=== PATIENT | female | born 1945 | race Caucasian/White ===

== ENCOUNTER 2017-01-19 13:54 | Observation (INO) | payer MEDICARE ==
[2017-01-19] MEDS ORDERED: Aspirin Low Dose CHEW TAB* 81 MG PO ONE (14:04)
[2017-01-19 14:31] LABS: Hematocrit 42 % (35-47); Hemoglobin 13.6 g/dl (12.0-16.0); Mean Corpuscular HGB Conc 33 g/dl (31-36); Mean Corpuscular Hemoglobin 30 pg (27-31); Mean Corpuscular Volume 90 fL (80-97); Mean Platelet Volume 7 um3 (7.4-10.4); Red Blood Count 4.62 10^6/ul (4.0-5.4); Red Cell Distribution Width 14 % (10.5-15)
--- NOTE | 2017-01-19 14:33 | RAD ---
INDICATION: Dizziness COMPARISON: None TECHNIQUE: An AP portable view obtained at 1405 hours is submitted. FINDINGS: Bones/Soft Tissues: There are no acute bony findings. Cardiomediastinal: The cardiomediastinal silhouette is normal. Lungs: There are no infiltrates. Pleura: There are no pleural effusions. Other: None IMPRESSION: NO ACTIVE DISEASE.
[2017-01-19 14:47] LABS: Albumin 3.8 g/dL (3.2-5.2); BUN/Creatinine Ratio 13.2 (8-20); Calcium 9.3 mg/dL (8.6-10.3); EGFR Non-African American 75.5 (>60); Globulin 3.2 g/dL (2-4); Potassium 3.5 mmol/L (3.5-5.0); Total Bilirubin 0.5 mg/dL (0.2-1.0)
[2017-01-19 14:49] LABS: Troponin I 0.01 ng/mL (<0.04)
[2017-01-19] MEDS ORDERED: Acetaminophen TAB* 325 MG PO PRN (15:28)
[2017-01-19] MEDS ORDERED: Ondansetron INJ* 2 MG/ML VIAL IV PRN (15:28)
[2017-01-19 15:43] LABS: Urine Bacteria Absent (Absent); Urine Bilirubin Negative (Negative); Urine Glucose Negative (Negative); Urine Nitrite Negative (Negative)
--- NOTE | 2017-01-19 15:51 | ED ---
Hiren Oliveira Benjamin, scribed for Hemalatha Zavala MD on 01/19/17 at 1503 . Dizziness - HPI Summary HPI Summary: 71F c/o sudden onset dizziness and nausea earlier today while driving earlier today. Morrice dizzy and lightheaded. Pt also reports some cough. Denies room spinning, CP, or SOB. FHx includes CAD. - History Of Current Complaint Chief Complaint: EDDizziness Stated Complaint: DIZZY Time Seen by Provider: 01/19/17 14:04 Hx Obtained From: Patient Onset/Duration: Resolved, Suddenly Timing: Intermittent Episode Lasting Severity Initially: Moderate Severity Currently: None Character: Lightheaded, Dizzy Aggravating Factor(s): Supine To Erect, Change In Head Position Alleviating Factor(s): Lying Down Associated Signs And Symptoms: Negative: Chest Pain, SOB, Visual Changes, Fever - Allergies/Home Medications Allergies/Adverse Reactions: Allergies Allergy/AdvReac Type Severity Reaction Status Date / Time No Known Allergies Allergy Verified 01/19/17 15:02 Home Medications: Home Medications Citalopram Hydrobromide [Celexa] 5 mg PO DAILY 01/19/17 [History Confirmed 01/19] PMH/Surg Hx/FS Hx/Imm Hx Endocrine/Hematology History: Denies: Hx Diabetes Infectious Disease History: No Infectious Disease History: Denies: Traveled Outside the [place] in Last 30 Days - Family History Known Family History: Positive: Cardiac Disease Negative: Hypertension - Social History Occupation: Employed Full-time Lives: Alone Review of Systems Constitutional: Negative Negative: Fever, Chills Eyes: Negative ENT: Negative Cardiovascular: Negative Negative: Chest Pain Positive: Cough. Negative: Shortness Of Breath Positive: Nausea. Negative: Abdominal Pain, Vomiting Genitourinary: Negative Musculoskeletal: Negative Skin: Negative Neurological: Other - dizziness and lighheadedness Psychological: Normal All Other Systems Reviewed And Are Negative: Yes Physical Exam Triage Information Reviewed: Yes Vital Signs On Initial Exam: Initial Vitals Temp Pulse Resp Pulse Ox 97.6 F 62 18 92 01/19/17 14:02 01/19/17 14:02 01/19/17 14:02 01/19/17 14:02 Vital Signs Reviewed: Yes Appearance: Positive: Well-Appearing, No Pain Distress, Well-Nourished Skin: Positive: Warm, Skin Color Reflects Adequate Perfusion, Dry Head/Face: Positive: Normal Head/Face Inspection Eyes: Positive: EOMI, ALIYAH ENT: Positive: Normal ENT inspection Neck: Positive: Supple, Nontender Respiratory/Lung Sounds: Positive: Clear to Auscultation, Breath Sounds Present Cardiovascular: Positive: RRR Abdomen Description: Positive: Nontender, Soft Bowel Sounds: Positive: Present Musculoskeletal: Positive: Strength/ROM Intact Neurological: Positive: Sensory/Motor Intact, Alert, Oriented to Person Place, Time, CN Intact II-III Psychiatric: Positive: Affect/Mood Appropriate - [place] Coma Scale Coma Scale Total: 15 Diagnostics - Vital Signs Vital Signs Temp Pulse Resp BP Pulse Ox 01/19/17 14:30 63 15 132/65 92 01/19/17 14:09 61 17 93 01/19/17 14:08 95 01/19/17 14:07 18 01/19/17 14:06 97.6 F 56 18 140/71 95 01/19/17 14:02 97.6 F 62 18 92 - Laboratory Lab Results: Lab Results 01/19/17 01/19/17 01/19/17 Range/Units 14:15 14:15 14:15 WBC 7.0 (3.5-10.8) 10^3/ul RBC 4.62 (4.0-5.4) 10^6/ul Hgb 13.6 (12.0-16.0) g/dl Hct 42 (35-47) % MCV 90 (80-97) fL MCH 30 (27-31) pg MCHC 33 (31-36) g/dl RDW 14 (10.5-15) % Plt Count 153 (150-450) 10^3/ul MPV 7 L (7.4-10.4) um3 Neut % (Auto) 64.1 (38-83) % Lymph % (Auto) 28.0 (25-47) % [place] % (Auto) 5.4 (1-9) % Eos % (Auto) 1.9 (0-6) % Baso % (Auto) 0.6 (0-2) % Absolute Neuts (auto) 4.5 (1.5-7.7) 10^3/ul Absolute Lymphs (auto) 2.0 (1.0-4.8) 10^3/ul Absolute Monos (auto) 0.4 (0-0.8) 10^3/ul Absolute Eos (auto) 0.1 (0-0.6) 10^3/ul Absolute Basos (auto) 0 (0-0.2) 10^3/ul Absolute Nucleated RBC 0 10^3/ul Nucleated RBC % 0 Sodium 140 (133-145) mmol/L Potassium 3.5 (3.5-5.0) mmol/L Chloride 104 (101-111) mmol/L Carbon Dioxide 26 (22-32) mmol/L Anion Gap 10 (2-11) mmol/L BUN 10 (6-24) mg/dL Creatinine 0.76 (0.51-0.95) mg/dL Est GFR ( Amer) 97.0 (>60) Est GFR (Non-Af Amer) 75.5 (>60) BUN/Creatinine Ratio 13.2 (8-20) Glucose 120 H (70-100) mg/dL Lactic Acid 1.8 (0.5-2.0) mmol/L Calcium 9.3 (8.6-10.3) mg/dL Total Bilirubin 0.50 (0.2-1.0) mg/dL AST 26 (13-39) U/L ALT 26 (7-52) U/L Alkaline Phosphatase 53 (34-104) U/L Troponin I 0.01 (<0.04) ng/mL Total Protein 7.0 (6.4-8.9) g/dL Albumin 3.8 (3.2-5.2) g/dL Globulin 3.2 (2-4) g/dL Albumin/Globulin Ratio 1.2 (1-3) Result Diagrams: 01/19/17 14:15 01/19/17 14:15 Lab Statement: Any lab studies that have been ordered have been reviewed, and results considered in the medical decision making process. - Radiology CXR Xray Interpretation: No Acute Changes Radiology Interpretation Completed By: Radiologist - EKG 1501 Cardiac Rate: NL - 71bpm EKG Rhythm: Sinus Rhythm ST Segment: Non-Specific EKG Interpretation: anterior and inferior Qs Dizzy Course/Dx - Course Course Of Treatment: Reviewed pt's medications list and allergies. Blood pressure noted. Discussed with Dr. Blanc (Hospitalist) for possible admission at 1458. - Diagnoses Provider Diagnoses: Near syncope Discharge - Discharge Plan Condition: Stable Disposition: ADMITTED TO [facility] The documentation as recorded by the Hiren mitchell Benjamin accurately reflects the service I personally performed and the decisions made by me, Hemalatha Zavala MD.
--- NOTE | 2017-01-19 17:26 | RAD ---
INDICATION: Dizziness COMPARISON: None TECHNIQUE: sagittal T1 FLAIR, axial diffusion, axial T1 FLAIR, axial T2, axial T2 FLAIR, and SWI images were acquired. FINDINGS: Craniocervical junction: The craniocervical junction appears normal. Ventricles/sulci: The ventricles and cisterns are normal in size and configuration for age. Brain parenchyma: There are no focal parenchymal abnormalities. There is no evidence of intracranial mass or mass effect. The diffusion weighted images show no evidence of acute ischemia. Intracranial hemorrhage: There is no intracranial hemorrhage. Extra-axial spaces: There are no extra-axial fluid collections or masses. Orbits: There are no MR abnormalities of the orbital structures. Paranasal sinuses/mastoid: The paranasal sinuses are clear. The mastoid air cells are well aerated.. Vascular: No abnormalities are seen. Other: None IMPRESSION: NEGATIVE EXAMINATION.
[2017-01-19] MEDS ORDERED: Iohexol 350* (CONTRAST) 500 ML MDV IV ONE (17:28)
--- NOTE | 2017-01-19 17:52 | RAD ---
INDICATION: Dizziness COMPARISON: MRI brain same date TECHNIQUE: Noncontrast axial source images were acquired from the skull base to the vertex. FINDINGS: Ventricles/sulci: The ventricles and cisterns are normal in size and configuration for age. Brain parenchyma: There is no focal parenchymal finding, evidence of intracranial mass, or intracranial mass effect. Intracranial hemorrhage:None. Extra-axial spaces: There are no abnormal extra axial fluid collections or evidence of extra-axial mass. Calvarium: There is no calvarial fracture or other calvarial abnormality. Scalp: There is no evidence of scalp or extracalvarial soft tissue abnormality. Paranasal sinuses/mastoid: The paranasal sinuses and mastoid air cells are clear. Other: None. IMPRESSION: No acute intracranial findings
--- NOTE | 2017-01-19 18:00 | RAD ---
INDICATION: Dizziness COMPARISON: CT brain same date; MRI brain same date TECHNIQUE: Axial source images were acquired with coronal and sagittal reconstructions. CT angiographic technique was utilized with injection of 80 mL Visipaque 350. FINDINGS: Aortic arch: There are no CT angiogram abnormalities of the arch or the great vessels arising from the arch. Right carotid: The internal carotid artery, carotid bifurcation, extracranial portions of the internal carotid artery, carotid artery at the skull base, carotid siphon, and carotid termination appear widely patent. There is a defect in the proximal portion of the right common carotid artery which is believed secondary to movement/registration artifact Left carotid:The internal carotid artery, carotid bifurcation, extracranial portions of the internal carotid artery, carotid artery at the skull base, carotid siphon, and carotid termination appear normal. Right middle and anterior cerebral arteries: There are no CT angiographic abnormalities of the middle or anterior cerebral arteries. Left middle and anterior cerebral arteries: There are no CT angiographic abnormalities of the middle or anterior cerebral arteries Right vertebral: The CT angiographic appearance of the vertebral artery is normal. Left vertebral: The CT angiographic appearance of the vertebral artery is normal. Basilar artery: The basilar artery and basilar tip appear normal. Posterior cerebral arteries: The distal distribution of the right and left posterior cerebral arteries is normal. [place]: The CT angiographic appearance of the [place] is normal. The posterior communicating arteries are hypoplastic, normal variant. Source images show no evidence of mass or adenopathy within the neck. There are no focal parenchymal abnormalities or abnormal areas of enhancement. IMPRESSION: NO SPECIFIC CT ANGIOGRAPHIC ABNORMALITIES. CPT II Codes: 3100F PQRS
[2017-01-19] MEDS: Heparin VIAL(*) 5000 UNITS/ML VIAL (FIVE THOUSAND) SUBCUT SCH (21:15)
--- NOTE | 2017-01-20 00:16 | HP ---
CC: Dr. Oquendo, [place], [place]; Dr. Dela Cruz * HISTORY AND PHYSICAL: DATE OF ADMISSION: 01/19/17 PRIMARY CARE PROVIDER: Dr. Oquendo from [place], [place]. CONSULTING NEUROLOGIST: Dr. Dela Cruz. ATTENDING PHYSICIAN WHILE IN THE HOSPITAL: Isabel Blanc DO * (report dictated by Sebastian Lomeli NP) CHIEF COMPLAINT: Dizziness. HISTORY OF PRESENT ILLNESS: Ms. Berry is a 71-year-old female patient. She has a former history of smoking. She has a history of depression, [place], and CAD. She came in today. She said she was driving from her [place] to her friend 's house when and she developed a sudden onset of dizziness. She said she felt really dizzy. I asked her if she felt like the room was spinning or lightheaded. She really was unable to tell me. She just said it came suddenly. She had no visual changes. She states that she was able to make it to her friend's house. She pulled over, got out of the car and when she got out of the car, she said she was walking like she was inebriated. She sat down. I asked her if this made things better. She said no. She said she did feel nauseous with this and she states anything she did, she just felt dizzy. She said her symptoms lasted about 30 minutes. She came in to the ER by ambulance. This was summoned by her friend. She denied having any chest pain or shortness of breath associated with this. No cough or fever. No abdominal pain. No nausea or vomiting. She denied having any urinary symptoms. She came in to ER, was evaluated here. There was concern for the dizziness. This may represent possible TIA. She is symptom-free now but because of these complaints, we were asked to evaluate for admission. PAST MEDICAL HISTORY: Significant for: 1. Depression. 2. [place]. 3. CAD. PAST SURGICAL HISTORY: She has had heart catheterization. HOME MEDICATIONS: Include Celexa 5 mg p.o. daily. ALLERGIES TO MEDICATIONS: Include no known drug allergies. FAMILY HISTORY: Reviewed and noncontributory. The patient specifically denied that her mother had any heart disease or stroke and same for her father. SOCIAL HISTORY: She is a former smoker. She smokes about a pack a day for about 35 years. She rarely drinks alcohol. Her surrogate decision maker is her son. REVIEW OF SYSTEMS: There are no documented fevers. She denied having any significant weight change. There was no double vision. There is no ear discharge. There is no rhinorrhea. No loss of consciousness. No pruritus. No skin ulcerations. Review of 14 systems completed, all others negative. PHYSICAL EXAMINATION GENERAL: At this time, Mrs. Berry is a 71-year-old female patient. She appears to be well nourished, well developed, does not appear to be in any acute distress. VITAL SIGNS: Blood pressure 132/65, pulse 68, respirations 18, O2 sat 95%, and temperature 97.8. HEENT: Head is atraumatic and normocephalic. Eyes: EOMs are intact. Sclerae anicteric and not pale. Throat: Oral mucosa appears to be moist. No oropharyngeal erythema. NECK: Supple. LUNGS: Clear to auscultation bilaterally. No wheezes, rales, or rhonchi. HEART: Sounds S1 and S2. Regular rate and rhythm. No murmurs, rubs, or gallops. ABDOMEN: Soft, flat, nontender. Bowel sounds present. EXTREMITIES: Pulses were 2+ throughout. She is able to move all 4 extremities with 5/5 strength. NEUROLOGIC: Her gait, she did walk to the bathroom down here. She did not appear to be ataxic. Her insulation machine operator were equal. Tongue was midline. Speech is clear. She had no facial dropping. She had no nystagmus on exam. Finger-to- nose intact bilaterally. [id number] intact bilaterally. Senior Court Office Assistant were equal. She had no gross focal deficits that I can see. The visual carmichael were intact and she had no complaints of double vision, blurry vision. SKIN: Intact. LABORATORY DATA/DIAGNOSTIC STUDIES: Labs today revealed WBC of 7.0, RBC of 4.62, hemoglobin 13.6, hematocrit of 42, and platelet count of 153. Sodium 140 , potassium 2.5, chloride 104, bicarb of 26, BUN 10, creatinine 0.76, glucose 120. Lactic 1.8. Calcium 9.3. Total bili 0.5, AST 26, ALT 26, alk phos 53. Troponin 0.003. Albumin 3.8. Urine is pending. She did have a chest x-ray obtained today, which revealed no active disease. She had an EKG obtained today, showed a normal sinus rhythm, rate of 71, no ST elevations or T wave inversion. No previous EKG for comparison. Old medical records were reviewed. ASSESSMENT AND PLAN: Ms. Berry is a 71-year-old female patient with multiple vascular risk factors coming in today with complaints of sudden onset of dizziness. She will be admitted under observation status for: 1. Dizziness. she may have a possible transient ischemic attack. My plan is to go ahead and actually do a CT of the brain, MRI of the brain, CTA of the head and neck, get an echo with bubble study, neuro checks, start her on a baby aspirin, check lipids and A1c in the morning and have Neurology evaluate the patient. We will place her on telemetry as well. 2. History of myocardial infarction and coronary artery disease. I will cycle her troponins, place her on telemetry. We are getting an echo. We will monitor and I will continue at least a baby aspirin for now. 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 3. Depression. Continue with Celexa. 4. DVT prophylaxis. She will be placed on heparin subcu. 5. Code status. She is full code. 6. Fluids, electrolytes, and nutrition. She can have a heart-healthy diet. TIME SPENT: Time spent on this admission was 60 minutes, greater than half the time was spent [id number] with the patient obtaining my history and physical, other time was spent going over the plan of care with the patient and implementing the plan of care. I did discuss plan of care with my attending, Dr. Blanc; she is in agreement. SEBASTIAN LOMELI, JAIMIE [id number]/CPS #: [id number] MEREDITH
[2017-01-20 04:44] LABS: Hematocrit 39 % (35-47); Hemoglobin 12.9 g/dl (12.0-16.0); Mean Corpuscular HGB Conc 33 g/dl (31-36); Mean Corpuscular Hemoglobin 29 pg (27-31); Mean Corpuscular Volume 89 fL (80-97); Mean Platelet Volume 7 um3 (7.4-10.4); Red Blood Count 4.37 10^6/ul (4.0-5.4); Red Cell Distribution Width 14 % (10.5-15); White Blood Count 6.9 10^3/ul (3.5-10.8)
[2017-01-20 04:45] LABS: BUN/Creatinine Ratio 13.8 (8-20); EGFR African American 91.5 (>60); EGFR Non-African American 71.1 (>60); HDL Cholesterol 31.9 mg/dL; Potassium 4.6 mmol/L (3.5-5.0)
[2017-01-20] MEDS: Heparin VIAL(*) 5000 UNITS/ML VIAL (FIVE THOUSAND) SUBCUT SCH ×2 (05:46→14:08)
[2017-01-20] MEDS ORDERED: Aspirin Low Dose CHEW TAB* 81 MG PO SCH (09:00)
[2017-01-20] MEDS ORDERED: Citalopram TAB* 10 MG PO SCH (09:00)
[2017-01-20] MEDS ORDERED: Perflutren Lipid Microsphere* 3 ML VIAL ONE (11:37)
[2017-01-20 12:49] VITALS: BP 140/63
--- NOTE | 2017-01-20 16:09 | ECHO ---
Patient: MK BURNS [facility] Rec#: [id number] : 1945 Date: 01/20/2017 Age: 71y Height: 174 cm / 68.5 in Weight: 115.7 kg / 255.0 lbs Sex: F BSA: 2.3 Room#: [facility] Admit Date#: 01/19/2017 Type: Inpatient Referring: Sebastian Lomeli NP Reading: Radu Carrera MD Clean Up Helper Banquet: Rach Shook RN [facility] Transthoracic Echocardiogram Indication: TIA BP: 137/58 HR: 54 Rhythm: Bradycardia Findings History: CAD, VA, former smoker, obesity Technical Comments: The study is technically limited due to poor apical windows. The study is technically limited due to patient body habitus. The study is technically limited due to the patient's smoking history. Completed at 1300. Left Ventricle: The left ventricular chamber size is normal. Septal wall hypertrophy is observed. There is a focal wall motion abnormality present. 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 The estimated ejection fraction is 35-40%. Abnormal left ventricular diastolic function is observed. The left ventricular diastolic filling pattern is consistent with pseudonormalization. The mid inferoseptal, and apical lateral wall segments are hypokinetic (score 2). The mid anteroseptal, mid anterior, apical septal, and apical anterior wall segments are akinetic (score 3). Overall wallmotion score index is 1.63 Left Atrium: The left atrium is slightly dilated. Right Ventricle: The right ventricular cavity size is normal. The right ventricular global systolic function is normal. Right Atrium: The right atrial cavity size is normal. The bubble study is negative. A patent foramen ovale is not demonstrated with color Doppler and agitated contrast. Aortic Valve: The aortic valve is trileaflet. The aortic valve leaflets are mildly thickened. There is no evidence of aortic regurgitation. There is no evidence of aortic stenosis. Mitral Valve: The mitral valve leaflets are mildly thickened. There is trace to mild mitral regurgitation. There is no evidence of mitral stenosis. Tricuspid Valve: The tricuspid valve leaflets are normal. There is trace to mild tricuspid regurgitation. No pulmonary hypertension is noted. There is no tricuspid stenosis. Pulmonic Valve: The pulmonic valve appears normal. There is a trace pulmonic regurgitation. There is no pulmonic stenosis. Pericardium: There is no significant pericardial effusion. A pericardial fat pad is visualized. Aorta: There is no dilatation of the ascending aorta. There is no dilatation of the aortic arch. There is no dilation of the aortic root. Pulmonary Artery: The main pulmonary artery is not well visualized. Venous: The inferior vena cava appears normal in size. There is a greater than 50% respiratory change in the inferior vena cava dimension. Contrast: Definity was used to optimize study. A total of 4 ml of Definity was given IV to enhance endocardial border definition. Intravenous agitated saline contrast was used to assess intracardiac shunting. Images 106 and 107. Summary: There was not any prior study for comparison. 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 The estimated ejection fraction is 35-40%. Abnormal left ventricular diastolic function is observed. There is trace to mild mitral regurgitation. There is trace to mild tricuspid regurgitation. Measurements Name Value Normal Range RVDdMajor (2D) 4.2 cm (2.2 - 4.4) RAd ISD 4CH 4.9 cm (3.4 - 4.9) RA (A4C)W 4 cm (2.9 - 4.6) IVSd (2D) 1.1 cm (0.6 - 1) LVPWd (2D) 1 cm (0.6 - 1) LVIDd (2D) 4.7 cm (3.6 - 5.4) LVIDs (2D) 3.7 cm - LV FS (2D) 21 % (25 - 45) Aortic Annulus 2.1 cm (1.4 - 2.6) Ao root diameter (2D) 3.3 cm (2.1 - 3.5) Ascending Ao 3.2 cm (2.1 - 3.4) Aortic arch 2.8 cm (1.8 - 3.4) LA dimension (AP) 2D 3.4 cm (2.3 - 3.8) LAd ISD 4CH 6 cm (2.9 - 5.3) LA ISD 4CH W 4.1 cm (2.5 - 4.5) Name Value Normal Range LA ESV SP 4CH (A/L) 75 ml - LA ESV SP 2CH (A/L) 68 ml - LA ESV BP (A/L) 73 ml - LA ESV BP (A/L) index 32.1 ml/m2 - LA ESV SP 4CH (MOD) 69 ml - LA ESV SP 2CH (MOD) 66 ml - Name Value Normal Range MV E-wave Vmax 0.87 m/sec - MV deceleration time 190 msec - MV A-wave Vmax 0.68 m/sec - MV E:A ratio 1.3 ratio - LV septal e' Vmax 0.07 m/sec - LV lateral e' Vmax 0.1 m/sec - LV E:e' septal ratio 12.4 ratio - LV E:e' lateral ratio 8.7 ratio - Name Value Normal Range AV Vmax 1.5 m/sec - AV VTI 34 cm - AV peak gradient 7.9 mmHg - AV mean gradient 4.5 mmHg - LVOT Vmax 1.2 m/sec - LVOT VTI 26.6 cm - LVOT peak gradient 5.6 mmHg - LVOT mean gradient 3 mmHg - VIJAY Vmax 0.81 m/sec - Name Value Normal Range TR Vmax 2.3 m/sec - TR peak gradient 21 mmHg - RAP 3 mmHg - RVSP 24 mmHg - IVC diameter 1.7 cm - Name Value Normal Range PV Vmax 0.81 m/sec - Wallmotion BAS Normal BA Normal BAL Normal GARETT Normal BI Normal BIS Normal MAS Akinetic MA Akinetic MAL Normal MIL Normal VA Normal MIS Hypokinetic Akinetic AA Akinetic AL Hypokinetic AI Normal APEX Hypokinetic
--- NOTE | 2017-01-20 21:56 | CONS ---
CONSULTATION REPORT: DATE OF CONSULT: 01/20/17 HISTORY OF PRESENT ILLNESS: Lucita Berry is a 71-year-old woman with a history of coronary artery disease and stent placement as well as ulcerative colitis who presented and was admitted after episode of dizziness and nausea. She lives in [place], but has a cottage here in [facility]. She indicates that she had a yogurt and doughnut holes at [place] with no hydration. On the morning of the event, went to [place] to get a sandwich around noon and she was driving toward [email or web address] and she became dizzy. She indicated she was nauseous. Everything seemed to go bigger and smaller. She willed herself to focus as she did not to want to pass out in the country without anyone around her. She looked back and forth when she stopped at a stop sign and she felt like she was on a ship. She got to a friend's house and walked down to the dock and was weaving and almost missed a chair. She denied any diplopia. There was no dory vertigo of things spinning without her creating movement. There was no vomiting, loss of consciousness, new numbness or weakness of arms or legs , double vision, change in speech, chest pain, chest pressure, shortness of breath. At baseline, she has frequent bowel movements due to ulcerative colitis and says that she will eat food that will just go right through her. She had very little p.o. intake that morning as noted above. This all occurs in the setting of significant stress. Her mother in the fall and she is yet to have a memorial service. She buried her mother alone. Her sister is an alcoholic and she has had to break contact with her. Her son is also an alcoholic and she is having difficulty with relationships. She does have good friends as well as in [place] where she lives during the winter. PAST MEDICAL HISTORY: Ms. Berry's past medical history includes myocardial infarction with stent in the proximal LAD, ulcerative colitis, depression. She has been told she has a peripheral neuropathy. PAST SURGICAL HISTORY: Her only surgery is catheterization and prior to admission, she was on Celexa 5 mg. MEDICATIONS: Her medications at hospital include: 1. Tylenol 650 mg p.o. q.4 hours p.r.n. fever, pain. 2. Aspirin 81 mg p.o. daily. 3. Celexa 5 mg p.o. daily. 4. Heparin 5000 units subcu q.8 hours. 5. Zofran 4 mg IV q.6 hours p.r.n. nausea. SOCIAL HISTORY: Ms. Berry does not smoke. She stopped when she was 55 years old. She drinks very little alcohol and denies any of the night before the symptoms. She did have caffeinated beverage with Coke the night before and she does enjoy ice tea. She lives part of the year in [place] and part of the year here in [place], [place]. She lost her mother this fall and had been taking care of her for 6 months. FAMILY HISTORY: Noncontributory at this time other than the fact there is significant alcoholism within the family leading to poor relationships. REVIEW OF SYSTEMS: For 10 review of systems, please HPI. Of note, there has been no weight loss, drenching night sweats, or high fevers for unknown reason. There has been no rash and other positive and negative findings were noted in the HPI and past medical history. LABORATORY DATA/DIAGNOSTIC STUDIES: Data includes hemoglobin A1c of 6.1. Fasting lipid profile with triglycerides 161, cholesterol 169, LDL 105, HDL 31.9. CTA of the brain and neck showed no significant abnormalities and MRI of the brain without contrast did not show evidence of a new stroke. On diffusion weighted image, these films were reviewed directly. Please see the reports for details. Echocardiogram is pending. Urinalysis revealed 2+ esterase, 1+ white blood cell count with squamous cells present. It is starting to grow E. coli. Her metabolic panels have shown repeat elevated glucose. The hemoglobin A1c was 6.1. Her CBC showed normal platelet count on admission, slightly low since admission at 139. IMPRESSION: Lucita Berry is a 71-year-old woman with symptoms most consistent with prolonged presyncope in the setting of decreased hydration, decreased p.o. intake, significant family stress. She is feeling much better in hospital. Of note, she does have a history of stent and at baseline, needs to be on aspirin as well as statin. Dr. Davies is planning to prescribe this. She has been diagnosed with a urinary tract infection and Dr. Davies will provide antibiotics accordingly. Education was given regarding the importance of hydration, diet. Her diet can affect other problems she is having such as her neuropathy, joints , foot pain. We talked about use of Mediterranean diet. We talked about importance of having regular meals. We also spent quite a bit of time talking about stress and her grief. She is planning to have a memorial service. TIME SPENT: Over 45 minutes were spent in direct [id number] patient care, over 50% of the time was spent in education and counseling regarding above issues. All questions were answered. [id number]/[facility] #: [id number] MEREDITH
--- NOTE | 2017-01-21 10:41 | DS ---
CC: Dr. Dela Cruz * DISCHARGE SUMMARY: DATE OF ADMISSION: 01/19/17 DATE OF DISCHARGE: 01/20/17 PRIMARY CARE PROVIDER: Dr. Oquendo, [place], [place]. DISCHARGE DIAGNOSIS: An episode of dizziness likely due to near-syncope versus vertigo. SECONDARY DIAGNOSES: 1. History of coronary artery disease status post stenting in the past. 2. History of lower extremity vein stripping in the recent past. MEDICATIONS ON DISCHARGE: Include: 1. Aspirin 81 mg daily. 2. Celexa 5 mg daily. 3. The patient also recommended to be placed on a statin medication, but she stated that she had severe myalgias after treatment with statin and refused it. LABORATORY DATA/STUDIES: Performed during the hospital stay included; Sodium 139, potassium , chloride 105, carbon dioxide 30, BUN 11, creatinine 0.8. The patient's hemoglobin A1c was 6.1. Triglycerides of 161, cholesterol of 169, LDL of 105, and HDL of 31. White blood cell count of 6.9, hemoglobin 12.9, hematocrit of 39, and platelet count of 139. Urinalysis showed +2 esterase, +1 white blood cells, and no bacteria present. The urine culture was positive for colonies of E. coli. MRI of the brain on 01/19/17, impression: "negative evaluation." Head, neck CT angiogram, impression: "no specific CT angiographic abnormalities." Transthoracic echocardiogram with bubble study is still pending at the time of dictation. Brain CT, impression: "no active acute intracranial findings." Portable chest x-ray, impression: "no active disease." The patient's telemetry monitoring showed normal sinus rhythm. CONSULTATION DURING THE HOSPITAL STAY: Included Dr. Dela Cruz from Neurology. HOSPITALIZATION COURSE: Lucita Berry is a 71-year-old female who presents to the hospital with an episode of dizziness when driving. The patient stated that all of a sudden she felt like she was in a ship and she started getting nauseated. She denied any diplopia and had no headache. The episode lasted approximately 30 minutes and resolved spontaneously, but at the time she presented to the hospital she did not have any remaining symptoms. The patient was evaluated on telemetry monitoring bed with no arrhythmia. Her troponins were negative throughout her hospital stay. She was noted to have LDL of 105, but she refused to take the statins due to history of myalgias in the past. The patient stated that due to history of stenting in her heart, she was recommended to take an aspirin a day, but she had not been taking it for years. The patient is recommended to take a baby aspirin after this discharge. Dr. Dela Cruz saw the patient in consultation and, for details of the consultation , please see the geotechnical intern. PHYSICAL EXAMINATION: At the time of discharge; blood pressure 140/62, heart rate of 53 and regular, respiratory rate 12, oxygen saturation 95% on room air, temperature of 98.0. General: The patient is a very pleasant 71-year-old female with a BMI of 36.5. The patient is in no acute distress, alert and oriented x3. HEENT: Head is atraumatic, normocephalic. Eyes: Pupils equal and reactive to light and accommodation. Oropharynx clear. Mucosa moist. Neck : Supple. No JVD. No bruits bilaterally. Cardiovascular: Regular rate and rhythm. No murmurs. Respiratory: Clear to auscultation bilaterally. Abdomen: Soft and nontender. Bowel sounds present in all 4 quadrants. Extremities: There is bilateral trace pedal edema. Pulses are 2+ bilaterally. No clubbing or cyanosis. Neuro Evaluation: Speech is clear. Cranial nerves II through XII grossly intact. Motor strength is 5/5 bilaterally. Psychiatric Evaluation : The patient is alert and oriented x3 with no evidence of anxiety or depression. DISCHARGE INSTRUCTIONS: The patient is going to be discharged home. The recommendation is for the patient to follow up with her primary care physician in the area. The patient stated that she spends every summer in [place], it would not be beneficial for the patient to establish primary care provider in our area also. Please note that this is a short summary of the patient's hospitalization, please refer to further medical records for details. Studies pending at the time of discharge includes transthoracic echocardiogram with bubble study. [id number]/[facility] #: [id number] MEREDITH
== END 2017-01-20 15:35 | disposition home or self-care (01) ==
LOC: ED 13:54 → MEDTELE 15:48
PROVIDERS: ADMIT Hospitalist; ATTEND Internal Medicine
DX: R42 Dizziness and giddiness (principal); R55 Syncope and collapse; R11.0 Nausea; R00.1 Bradycardia, unspecified; I25.10 Atherosclerotic heart disease of native coronary artery without angina pectoris; I25.2 Old myocardial infarction; Z87.891 Personal history of nicotine dependence; E66.9 Obesity, unspecified; Z95.5 Presence of coronary angioplasty implant and graft; K51.90 Ulcerative colitis, unspecified, without complications; F32.9 Major depressive disorder, single episode, unspecified; Z79.899 Other long term (current) drug therapy
CPT/HCPCS: 36415; 70450; 70496; 70498; 70551; 71010; 80048; 80053; 80061; 81003; 81015; 83036; 83605; 84484; 85025; 87077; 87086; 87186; 93005; 93306; 99283; A9270-GY; C8929; G0378; J1644; Q9967